=== PATIENT | male | born 1970 | race Caucasian/White ===

== ENCOUNTER 2017-01-21 18:17 | Emergency (ER) | payer BC, OTHER ==
[~2017-01-21] VITALS: Ht 185.4 cm; Wt 174.6 kg
[2017-01-21] MEDS ORDERED: CHLORTHALIDONE25 MG PO (18:30)
[2017-01-21] MEDS ORDERED: FLEXERIL PO (18:30)
[2017-01-21] MEDS ORDERED: MOBIC15 MG PO (18:31)
[2017-01-21] MEDS ORDERED: POTASSIUM20 PO (18:31)
[2017-01-21] MEDS ORDERED: EFFEXOR XR75 MG PO (18:31)
[2017-01-21] MEDS ORDERED: METFORMIN HCL500 MG PO (18:31)
[2017-01-21] MEDS ORDERED: GABAPENTIN 100100 MG PO (18:32)
[2017-01-21] MEDS ORDERED: SEROQUEL 25 MG25 M1 PO (18:32)
[2017-01-21] MEDS ORDERED: AMLODIPINE-BEN1 EAC3 PO (18:34)
[2017-01-21] MEDS ORDERED: DOXYCYCLINE 10100 MG PO (18:34)
[2017-01-21] MEDS ORDERED: HYDROCODONE-AP1 EAC6 PO (20:04)
[2017-01-21 20:31] VITALS: BP 134/80
== END 2017-01-21 20:30 | disposition home or self-care (01) ==
LOC: ER 18:17
DX: S16.1XXA Strain of muscle, fascia and tendon at neck level, initial encounter (principal); F10.99 Alcohol use, unspecified with unspecified alcohol-induced disorder; Z87.891 Personal history of nicotine dependence; V89.2XXA Person injured in unspecified motor-vehicle accident, traffic, initial encounter; Y93.89 Activity, other specified; Y92.89 Other specified places as the place of occurrence of the external cause; Y99.8 Other external cause status